=== PATIENT | female | born 1995 ===

== ENCOUNTER 2021-10-03 15:49 | Outpatient (CLI) | payer OTHER | END 2021-10-03 16:55 | disposition home or self-care (01) | LOC: PRENATAL 15:49 | PROVIDERS: ATTEND Obstetrics & Gynecology Maternal & Fetal Medicine | DX: O36.80X0 Pregnancy with inconclusive fetal viability, not applicable or unspecified (principal); O99.891 Other specified diseases and conditions complicating pregnancy; Z3A.13 13 weeks gestation of pregnancy ==